=== PATIENT | male | born 1960 | race Caucasian/White ===

== ENCOUNTER 2016-03-24 15:12 | Emergency (ER) | payer SELFPAY ==
[~2016-03-24] VITALS: Ht 165.1 cm; Wt 81.6 kg
[2016-03-24 15:28] VITALS: BP 139/94
--- NOTE | 2016-03-24 15:34 | NUR ---
PATIENT [employer]. BROUGHT IN CUSTODY BY POLICE FOR AEROSOL CAN SOTO TO FACE DENIES N/V/D; SKIN IS PINK/WARM/DRY; AAOX4 WITH EVEN AND STEADY GAIT; LUNGS CLEAR BL; HR EVEN AND REGULAR; PT DENIES ANY FEVER, CP, SOB, OR COUGH AT THIS TIME; PATIENT STATES PAIN OF 0/10 AT THIS TIME; VSS; PATIENT POSITIONED FOR COMFORT; HOB ELEVATED; BEDRAILS UP X2; BED DOWN. ER MD MADE AWARE OF PT STATUS.
[2016-03-24] MEDS ORDERED: BACITRACIN OINT 500 UNITS/GM PKT TP ONE (15:35)
--- NOTE | 2016-03-24 15:40 | NUR ---
Patient being evaluated by physician at bedside.
[2016-03-24 15:50] VITALS: BP 143/79
--- NOTE | 2016-03-24 15:50 | NUR ---
Patient discharged with v/s stable. Written and verbal after care instructions given and explained. Patient verbalized understanding. Police with in custody. All questions addressed prior to discharge. Advised to follow up with PMD. PD STAFF Dewayne VALDIVIA #[id number]
== END 2016-03-24 15:50 ==
LOC: MED 15:12
DX: T23.261A Burn of second degree of back of right hand, initial encounter (principal); T20.10XA Burn of first degree of head, face, and neck, unspecified site, initial encounter; T31.0 Burns involving less than 10% of body surface; W40.1XXA Explosion of explosive gases, initial encounter; Y93.89 Activity, other specified; Y92.89 Other specified places as the place of occurrence of the external cause; Y99.8 Other external cause status